=== PATIENT | female | born 1950 | race Caucasian/White ===

== ENCOUNTER 2018-01-31 13:47 | Observation (INO) | payer MEDICARE ==
[2018-01-31 14:05] VITALS: BP 106/60; PULSE 92; RESP 18; TEMP 97.4; O2SAT 96
--- NOTE | 2018-01-31 14:32 | PD ---
HPI Chief Complaint: Chest Pain Time Seen by Provider: 14:18 Travel History International Travel<30 days: No Contact w/Intl Traveler<30days: No Traveled to known affect area: No History of Present Illness HPI 67-year-old female with history of hypertension presents emergency department for evaluation of acute onset chest pain that began this morning while getting ready for lunch. She states it was more epigastric in nature, but had associated lightheaded sensation and diaphoresis with it. She states she has never had anything like this before. She has no significant cardiac history. Currently she is not having any pain. She has no other symptoms to report. [facility] Past Medical History Cardiovascular Problems: Yes Social History Tobacco Use: No Allergies-Medications (Allergen,Severity, Reaction): Coded Allergies: No Known Allergies (Unverified , 01/31/18) Review of Systems Except as stated in HPI: all other systems reviewed are Neg Physical Exam Narrative GENERAL: Well-nourished female patient, in no acute distress. SKIN: Focused skin assessment warm/dry. HEAD: Atraumatic. Normocephalic. EYES: Pupils equal and round. No scleral icterus. No injection or drainage. ENT: No nasal bleeding or discharge. Mucous membranes pink and moist. NECK: Trachea midline. No JVD. CARDIOVASCULAR: Regular rate and rhythm. No murmur appreciated. RESPIRATORY: No accessory muscle use. Clear to auscultation. Breath sounds equal bilaterally. GASTROINTESTINAL: Abdomen soft, non-tender, nondistended. Hepatic and splenic margins not palpable. No guarding. No rebound tenderness. MUSCULOSKELETAL: No obvious deformities. No clubbing. No cyanosis. No edema. NEUROLOGICAL: Awake and alert. No obvious cranial nerve deficits. Motor grossly within normal limits. Normal speech. PSYCHIATRIC: Appropriate mood and affect; insight and judgment normal. Data Data Last Documented VS Vital Signs Date Time Temp Pulse Resp B/P (MAP) Pulse Ox O2 Delivery O2 Flow Rate FiO2 01/31/18 17:33 78 18 125/62 (83) 99 Room Air 01/31/18 14:05 97.4 Orders Orders Electrocardiogram (01/31/18 14:07) Complete Blood Count With Diff (01/31/18 14:07) Ckmb (Isoenzyme) Profile (01/31/18 14:07) Troponin I (01/31/18 14:07) Chest, Single Ap (01/31/18 14:07) Iv Access Insert/Monitor (01/31/18 14:07) Ecg Monitoring (01/31/18 14:07) Oxygen Administration (01/31/18 14:07) Oximetry (01/31/18 14:07) Comprehensive Metabolic Panel (01/31/18 14:13) Lipase (01/31/18 14:13) Admit Order (Ed Use Only) (01/31/18 17:49) Activity Bed Rest With Brp (01/31/18 17:50) Vital Signs (Adult) Q4H (01/31/18 17:50) Cardiac Rhythm .As Directed (01/31/18 17:50) Notify Dr: Other .PRN (01/31/18 17:50) Notify Dr. Parameters (01/31/18 17:50) Resp Oxygen Nasal Cannula (01/31/18 ) Ckmb (Isoenzyme) Profile (01/31/18 17:50) Ckmb (Isoenzyme) Profile (01/31/18 20:50) Troponin I (01/31/18 17:50) Troponin I (01/31/18 20:50) Electrocardiogram (01/31/18 17:50) Electrocardiogram (01/31/18 20:50) ^ Obtain (01/31/18 17:50) Sodium Chloride 0.9% Flush (Ns Flush) (01/31/18 18:00) Sodium Chloride 0.9% Flush (Ns Flush) (01/31/18 21:00) Director Social Welfare / Telemetry JORDAN.Q8H (01/31/18 17:50) Ruben Bilateral/Knee High JORDAN.QSHIFT (01/31/18 17:50) Labs Laboratory Tests Test 01/31/18 14:13 White Blood Count 5.3 TH/MM3 Red Blood Count 3.83 MIL/MM3 Hemoglobin 12.2 GM/DL Hematocrit 37.2 % Mean Corpuscular Volume 97.1 FL Mean Corpuscular Hemoglobin 31.9 PG Mean Corpuscular Hemoglobin Concent 32.8 % Red Cell Distribution Width 14.0 % Platelet Count 217 TH/MM3 Mean Platelet Volume 8.3 FL Neutrophils (%) (Auto) 58.8 % Lymphocytes (%) (Auto) 18.8 % Monocytes (%) (Auto) 18.5 % Eosinophils (%) (Auto) 3.4 % Basophils (%) (Auto) 0.5 % Neutrophils # (Auto) 3.1 TH/MM3 Lymphocytes # (Auto) 1.0 TH/MM3 Monocytes # (Auto) 1.0 TH/MM3 Eosinophils # (Auto) 0.2 TH/MM3 Basophils # (Auto) 0.0 TH/MM3 CBC Comment DIFF FINAL Differential Comment Blood Urea Nitrogen 12 MG/DL Creatinine 0.86 MG/DL Random Glucose 96 MG/DL Total Protein 7.1 GM/DL Albumin 3.0 GM/DL Calcium Level 8.5 MG/DL Alkaline Phosphatase 143 U/L Aspartate Amino Transf (AST/SGOT) 38 U/L Alanine Aminotransferase (ALT/SGPT) 18 U/L Total Bilirubin 0.6 MG/DL Sodium Level 135 MEQ/L Potassium Level 4.5 MEQ/L Chloride Level 101 MEQ/L Carbon Dioxide Level 27.9 MEQ/L Anion Gap 6 MEQ/L Estimat Glomerular Filtration Rate 66 ML/MIN Total Creatine Kinase 64 U/L Troponin I LESS THAN 0.02 NG/ML Lipase 149 U/L MDM Medical Decision Making Medical Screen Exam Complete: Yes Emergency Medical Condition: Yes Medical Record Reviewed: Yes Differential Diagnosis ACS versus gastritis versus indigestion versus pancreatitis versus cholecystitis Narrative Course 67-year-old female presents emergency department for evaluation acute onset epigastric/chest pain. Patient appears well at this time. She is not having any pain. EKG is complete reviewed by my attending without acute ST elevation or depression. Chest pain workup is initiated. Lab work is reviewed and without acute concern. Chest x-ray shows elevated right hemidiaphragm. I discussed the patient with my attending physician. Patient will be admitted observation to the chest pain center for further evaluation of her symptoms. Laboratory Tests Test 01/31/18 14:13 White Blood Count 5.3 TH/MM3 Red Blood Count 3.83 MIL/MM3 Hemoglobin 12.2 GM/DL Hematocrit 37.2 % Mean Corpuscular Volume 97.1 FL Mean Corpuscular Hemoglobin 31.9 PG Mean Corpuscular Hemoglobin Concent 32.8 % Red Cell Distribution Width 14.0 % Platelet Count 217 TH/MM3 Mean Platelet Volume 8.3 FL Neutrophils (%) (Auto) 58.8 % Lymphocytes (%) (Auto) 18.8 % Monocytes (%) (Auto) 18.5 % Eosinophils (%) (Auto) 3.4 % Basophils (%) (Auto) 0.5 % Neutrophils # (Auto) 3.1 TH/MM3 Lymphocytes # (Auto) 1.0 TH/MM3 Monocytes # (Auto) 1.0 TH/MM3 Eosinophils # (Auto) 0.2 TH/MM3 Basophils # (Auto) 0.0 TH/MM3 CBC Comment DIFF FINAL Differential Comment Blood Urea Nitrogen 12 MG/DL Creatinine 0.86 MG/DL Random Glucose 96 MG/DL Total Protein 7.1 GM/DL Albumin 3.0 GM/DL Calcium Level 8.5 MG/DL Alkaline Phosphatase 143 U/L Aspartate Amino Transf (AST/SGOT) 38 U/L Alanine Aminotransferase (ALT/SGPT) 18 U/L Total Bilirubin 0.6 MG/DL Sodium Level 135 MEQ/L Potassium Level 4.5 MEQ/L Chloride Level 101 MEQ/L Carbon Dioxide Level 27.9 MEQ/L Anion Gap 6 MEQ/L Estimat Glomerular Filtration Rate 66 ML/MIN Total Creatine Kinase 64 U/L Troponin I LESS THAN 0.02 NG/ML Lipase 149 U/L Diagnosis Primary Impression: Chest pain Qualified Codes: R07.9 - Chest pain, unspecified Admitting Information Admitting Physician Requests: Observation Condition: Stable Lexie Nicole Jan 31, 2018 14:32
[2018-01-31 14:37] LABS: AUTOMATED NEUTROPHIL # 3.1 TH/MM3 (1.8-7.7); BASOPHIL % 0.5 % (0.0-2.0); EOSINOPHIL # 0.2 TH/MM3 (0-0.4); EOSINOPHIL % 3.4 % (0.0-4.0); HEMATOCRIT 37.2 % (35.0-46.0); HEMOGLOBIN 12.2 GM/DL (11.6-15.3); LYMPH % 18.8 % (9.0-44.0); MEAN CELL VOLUME 97.1 FL (80.0-100.0); MEAN CORPUSCULAR HEMOGLOBIN 31.9 PG (27.0-34.0); MEAN CORPUSCULAR HGB CONC 32.8 % (32.0-36.0); MEAN PLATELET VOLUME 8.3 FL (7.0-11.0); MONO % 18.5 % (0.0-8.0); NEUT % 58.8 % (16.0-70.0); PLATELET COUNT 217 TH/MM3 (150-450); RED BLOOD COUNT 3.83 MIL/MM3 (4.00-5.30); WHITE BLOOD COUNT 5.3 TH/MM3 (4.0-11.0)
--- NOTE | 2018-01-31 14:38 | RADRPT ---
EXAM DATE/TIME: 01/31/2018 14:20 [place] COMPARISON: No previous studies available for comparison. INDICATIONS : Chest pain today. MEDICAL HISTORY : None. SURGICAL HISTORY : None. ENCOUNTER: Initial ACUITY: 1 day PAIN SCORE: 4/10 LOCATION: Bilateral chest FINDINGS: A single view of the chest demonstrates the lungs to be aerated without evidence of mass, infiltrate or effusion. There is nonspecific elevation of the right hemidiaphragm. The cardiomediastinal contou rs are unremarkable. Osseous structures are intact. CONCLUSION: 1. Elevation of the right hemidiaphragm. 2. No definite acute pulmonary infiltrates. Jabier Camarena MD on January 31, 2018 at 14:35 Board Certified Radiologist. This report was verified electronically.
[2018-01-31 15:12] LABS: BICARBONATE 27.9 MEQ/L (21.0-32.0); BLOOD UREA NITROGEN 12 MG/DL (7-18); CALCIUM 8.5 MG/DL (8.5-10.1); CHLORIDE 101 MEQ/L (98-107); CREATININE 0.86 MG/DL (0.50-1.00); GLOMERULAR FILTRATION RATE 66 ML/MIN (>89); GLUCOSE,RANDOM 96 MG/DL (74-106); SODIUM (NA) 135 MEQ/L (136-145); TROPONIN I LESS THAN 0.02 NG/ML (0.02-0.05)
[2018-01-31 15:55] VITALS: BP 96/61; PULSE 85; RESP 18; O2SAT 98
[2018-01-31 16:58] LABS: ALT (GPT) 18 U/L (10-53); TOTAL BILIRUBIN ADULT 0.6 MG/DL (0.2-1.0); TOTAL PROTEIN 7.1 GM/DL (6.4-8.2)
[2018-01-31 17:00] LABS: ALKALINE PHOSPHATASE 143 U/L (45-117)
[2018-01-31 17:05] LABS: AST (GOT) 38 U/L (15-37)
[2018-01-31 17:33] VITALS: BP 125/62; PULSE 78; RESP 18; O2SAT 99
[2018-01-31] MEDS ORDERED: SODIUM CHLORIDE 0.9% FLUSH 10 ML FLUSH IV FLUSH PRN (18:00)
[2018-01-31] MEDS ORDERED: ACETAMINOPHEN 500 MG CPLT PO PRN (18:45)
[2018-01-31] MEDS ORDERED: ONDANSETRON HCL 4 MG/2 ML VIAL IV PUSH PRN (18:45)
[2018-01-31] MEDS ORDERED: NITROGLYCERIN 0.4 MG SL 25 TABS/BTL SL PRN (18:45)
--- NOTE | 2018-01-31 19:17 | HHI.HP ---
HPI Primary Care Physician Primary care provider resides in [place] Chief Complaint Chest pain History of Present Illness [id number] female with history of hypertension presents to emergency room for further evaluation of sudden onset of chest pain. Onset while getting ready to meet a friend for lunch. Location substernal. Characterized as a "crushing pain." No radiation. Duration 20 minutes. No associated symptoms of nausea, vomiting, or dyspnea. Endorses diaphoresis. Hurt to take a deep breath. Denies similar pain in the past. No known precipitating factors. Relieving factors nitroglycerin and aspirin provided by EMS. Currently she is chest pain- free reporting only feeling chest discomfort when taking a deep breath. Review of Systems General: No fatigue,weakness, fever, chills, or recent illness. Has been a general state of health. Lives part-time between [place] and [place]. HEENT: No GONZALEZ, no vision changes, no nasal congestion or drainage, no dysphasia CV: As stated above. No CP, pressure, palpitations, intermittent leg pain, or dizziness RESP: No SOB, cough, wheeze, or recent respiratory infection GI: No nausea, vomiting, bowel changes, diarrhea, constipation, pain, distention , melena, or blood in the stool. No change in appetite, no unintentional weight gain or weight loss. : No dysuria, urgency, frequency EXT: No lower leg edema, no paraesthesias MS: No discomfort, injury, trauma or change in ROM NEURO: No difficulty with balance, LOC, motor/sensory deficits PSYCH: No anxiety, depression, or situational stress. SKIN: No rashes, no concerning lesions Past Family Social History Allergies: Coded Allergies: No Known Allergies (Unverified , 01/31/18) Past Medical History Hypertension, glaucoma-recently diagnosed Past Surgical History None Active Ordered Medications Current Medications Medications (Trade) Dose Ordered Sig/Caren Route Start Time Stop Time Status Last Admin (NS Flush) 2 ml UNSCH PRN IV FLUSH 01/31/18 18:00 (NS Flush) 2 ml BID IV FLUSH 01/31/18 21:00 (Tylenol) 500 mg Q4H PRN PO 01/31/18 18:45 (Zofran Inj) 4 mg Q6H PRN IV PUSH 01/31/18 18:45 (Nitrostat Sl) 0.4 mg Q5M PRN SL 01/31/18 18:45 (Aspirin) 325 mg DAILY PO 02/01/18 09:00 Family History Noncontributory for early onset cardiovascular disease Social History Known hypertension. No known coronary artery disease, lipidemia, or diabetes. Lifelong nonsmoker. Endorses occasional alcohol use. . Retired. Lives part-time between [place] and [place]. Past Cardiac testing None Physical Exam Vital Signs Vital Signs Date Time Temp Pulse Resp B/P (MAP) Pulse Ox O2 Delivery O2 Flow Rate FiO2 01/31/18 18:37 01/31/18 17:33 78 18 125/62 (83) 99 Room Air 01/31/18 15:55 85 18 98 Room Air 01/31/18 15:55 85 18 96/61 (73) 98 Room Air 01/31/18 15:55 98 Room Air 01/31/18 15:55 98 Room Air 01/31/18 14:05 97.4 92 18 106/60 (75) 96 Physical Exam GENERAL: Alert WN, WD, NAD, pleasant, female HEAD: NC, AT EYES: Sclera clear, conjunctiva without injection, pupils equal and round ENT: Mucous membranes pink and moist CV: RRR, 2/6 systolic murmur, rub, gallop, no JVD, S1-S2 no S3-S4. RESP: Clear lungs throughout bilateral, no crackles, wheeze, rhonchi, symmetrical chest rise, nonlabored, able to speak in full sentences ABD: Soft, NT, ND, no masses, positive bowel tones EXT: Pulses +24, no dependent edema MS: Normal tone 4 extremities, no obvious deformities, full range of motion NEURO: CN II through CN XII grossly intact, motor strength 5/5 PSYCH: A+O 3, pleasant affect, appropriate speech, mood, insight and judgment SKIN: Normal turgor, normal texture Laboratory Laboratory Tests Test 01/31/18 14:13 White Blood Count 5.3 Red Blood Count 3.83 Hemoglobin 12.2 Hematocrit 37.2 Mean Corpuscular Volume 97.1 Mean Corpuscular Hemoglobin 31.9 Mean Corpuscular Hemoglobin Concent 32.8 Red Cell Distribution Width 14.0 Platelet Count 217 Mean Platelet Volume 8.3 Neutrophils (%) (Auto) 58.8 Lymphocytes (%) (Auto) 18.8 Monocytes (%) (Auto) 18.5 Eosinophils (%) (Auto) 3.4 Basophils (%) (Auto) 0.5 Neutrophils # (Auto) 3.1 Lymphocytes # (Auto) 1.0 Monocytes # (Auto) 1.0 Eosinophils # (Auto) 0.2 Basophils # (Auto) 0.0 CBC Comment DIFF FINAL Differential Comment Blood Urea Nitrogen 12 Creatinine 0.86 Random Glucose 96 Total Protein 7.1 Albumin 3.0 Calcium Level 8.5 Alkaline Phosphatase 143 Aspartate Amino Transf (AST/SGOT) 38 Alanine Aminotransferase (ALT/SGPT) 18 Total Bilirubin 0.6 Sodium Level 135 Potassium Level 4.5 Chloride Level 101 Carbon Dioxide Level 27.9 Anion Gap 6 Estimat Glomerular Filtration Rate 66 Total Creatine Kinase 64 Troponin I LESS THAN 0.02 Lipase 149 Result Diagram: 01/31/18 1413 01/31/18 1413 Imaging Last 48 hours Impressions Chest X-Ray 01/31/18 1407 Signed Impressions: Service Date/Time: January 14:20 - CONCLUSION: 1. Elevation of the right hemidiaphragm. 2. No definite acute pulmonary infiltrates. Jabier Camarena MD Course EKG Normal sinus rhythm, no ST changes Caprini VTE Risk Assessment Caprini VTE Risk Assessment: Mod/High Risk (score >= 2) Caprini Risk Assessment Model Point Value = 1 Point Value = 2 Point Value = 3 Point Value = 5 Age 41-60 Minor surgery BMI > 25 kg/m2 Swollen legs Varicose veins or History of unexplained or recurrent spontaneous Oral contraceptives or hormone replacement Sepsis (< 1 month) Serious lung disease, including pneumonia (< 1 month) Abnormal pulmonary function Acute myocardial infarction Congestive heart failure (< 1 month) History of inflammatory bowel disease Medical patient at bed rest Age 61-74 Arthroscopic surgery Major open surgery (> 45 min) Laparoscopic surgery (> 45 min) Malignancy Confined to bed (> 72 hours) Immobilizing plaster cast Central venous access Age >= 75 History of VTE Family history of VTE Factor V Leiden Prothrombin [id number] Lupus anticoagulant Anticardiolipin antibodies Elevated serum homocysteine Heparin-induced thrombocytopenia Other congenital or acquired thrombophilia Stroke (< 1 month) Elective arthroplasty Hip, pelvis, or leg fracture Acute spinal cord injury (< 1 month) Prophylaxis Regimen Total Risk Factor Score Risk Level Prophylaxis Regimen 0-1 Low Early ambulation 2 Moderate Order ONE of the following: *Sequential Compression Device (SCD) *Heparin 5000 units SQ BID 3-4 Higher Order ONE of the following medications: *Heparin 5000 units SQ TID *Enoxaparin/Lovenox 40 mg SQ daily (WT < 150 kg, CrCl > 30 mL/min) *Enoxaparin/Lovenox 30 mg SQ daily (WT < 150 kg, CrCl > 10-29 mL/min) *Enoxaparin/Lovenox 30 mg SQ BID (WT < 150 kg, CrCl > 30 mL/min) AND/OR *Sequential Compression Device (SCD) 5 or more Highest Order ONE of the following medications: *Heparin 5000 units SQ TID (Preferred with Epidurals) *Enoxaparin/Lovenox 40 mg SQ daily (WT < 150 kg, CrCl > 30 mL/min) *Enoxaparin/Lovenox 30 mg SQ daily (WT < 150 kg, CrCl > 10-29 mL/min) *Enoxaparin/Lovenox 30 mg SQ BID (WT < 150 kg, CrCl > 30 mL/min) AND *Sequential Compression Device (SCD) Assessment and Plan Assessment and Plan #1 Chest pain-the chest pain center. Rule out with 3 sets of EKGs, cardiac enzymes, monitor on telemetry overnight. Will be seen and evaluated by Dr. Jj Reynoso in a.m. Discussed possible exercise stress test in a.m. if ruled out. This will be determined after evaluation by machine bobbin winder. Patient is agreeable to plan of care. #2 Elevated right diaphragm-no comparison chest xray available, discussed findings with patient, unsure if this is a new finding. Further evaluation with Dr. Reynoso in morning. Patient is resting comfortably without any complaints. Leah Escalera Jan 31, 2018 19:17
[2018-01-31 20:13] VITALS: BP 110/61; PULSE 86; RESP 16; TEMP 98; O2SAT 95
[2018-01-31 20:24] LABS: TROPONIN I LESS THAN 0.02 NG/ML (0.02-0.05)
[2018-01-31] MEDS: SODIUM CHLORIDE 0.9% FLUSH 10 ML FLUSH IV FLUSH SCH (21:49)
[2018-01-31] MEDS ORDERED: ZOLPIDEM TARTRATE 10 MG TAB PO PRN (22:45)
[2018-01-31] MEDS ORDERED: LOSA100T PO (23:03)
[2018-01-31] MEDS ORDERED: DULO1CAP3 PO (23:06)
[2018-01-31] MEDS ORDERED: BUPR150CR PO (23:06)
[2018-01-31 23:33] LABS: TROPONIN I LESS THAN 0.02 NG/ML (0.02-0.05)
[2018-01-31 23:58] VITALS: BP 116/69; PULSE 82; RESP 16; TEMP 97.9; O2SAT 95
[2018-02-01 08:01] VITALS: O2SAT 94
[2018-02-01 08:13] VITALS: BP 117/78; PULSE 82; PULSE 86; RESP 18; TEMP 98.5; O2SAT 95
[2018-02-01] MEDS: SODIUM CHLORIDE 0.9% FLUSH 10 ML FLUSH IV FLUSH SCH (08:21)
[2018-02-01] MEDS ORDERED: ASPIRIN 325 MG TAB PO SCH (09:00)
[2018-02-01] MEDS ORDERED: DULoxetine HCl DR 60 MG CAP PO SCH (10:00)
--- NOTE | 2018-02-01 10:16 | HHI.DCPOC ---
Discharge Care Plan Diagnosis: (1) Chest pain (2) Hypertension Goals to Promote Your Health * To prevent worsening of your condition and complications * To maintain your health at the optimal level Directions to Meet Your Goals Take your medications as prescribed Follow your dietary instruction Follow activity as directed Keep your appointments as scheduled Take your immunizations and boosters as scheduled If your symptoms worsen call your PCP, if no PCP go to Urgent Care Center or Emergency Room Smoking is Dangerous to Your Health. Avoid second hand smoke Call the 24-hour hour crisis hotline for domestic abuse at [facility] Contreras Feb 01, 2018 10:16
[2018-02-01] MEDS ORDERED: LOSARTAN 50 MG TAB PO SCH (11:00)
--- NOTE | 2018-02-01 11:41 | TR ---
Date Performed: 02/01/2018 Time Performed: 09:06:53 DOCTOR: Jj Reynoso DRUG LIST: CLINICAL HISTORY: CHEST PAIN REASON FOR TEST: REASON FOR ENDING: OBSERVATION: CONCLUSION: ZEENAT PROTOCOL. NO CP. MILD SOB. TEST STOPPED AFTER EXCEEDING GOAL HR SECONDARY TO C HRONIC BILATERAL HIP PAIN.Maximum TD=106 % Max HR Achieved=89.0% Maximum MA=688/74 Total Exercise Turner e=5:30 COMMENTS: Conclusion: Normal treadmill exercise. No evidence of ischemia.
--- NOTE | 2018-02-01 11:42 | EKG ---
Date Performed: 01/31/2018 Time Performed: 19:18:45 PTAGE: 67 years EKG: Sinus rhythm NORMAL ECG PREVIOUS TRACING : 01/31/2018 14.21 Since previous tracing, no significant change noted DOCTOR: Jj Reynoso Interpretating Date/Time 02/01/2018 11:40:10
--- NOTE | 2018-02-01 11:44 | EKG ---
Date Performed: 01/31/2018 Time Performed: 14:19:11 PTAGE: 67 years EKG: Sinus rhythm INCOMPLETE RIGHT BUNDLE BRANCH BLOCK BORDERLINE ECG NO PREVIOUS TRACING DOCTOR: Jj Reynoso Interpretating Date/Time 02/01/2018 11:41:43
--- NOTE | 2018-02-01 11:46 | EKG ---
Date Performed: 01/31/2018 Time Performed: 22:47:16 PTAGE: 67 years EKG: Sinus rhythm INCOMPLETE RIGHT BUNDLE BRANCH BLOCK BORDERLINE ECG PREVIOUS TRACING : 01/31/2018 19.18 Since previous tracing, no significant change noted DOCTOR: Jj Reynoso Interpretating Date/Time 02/01/2018 11:44:24
[2018-02-01] MEDS ORDERED: buPROPion HCL 150 MG SUSTAINED RELEASE TAB PO SCH (21:00)
== END 2018-02-01 11:44 | disposition home or self-care (01) ==
LOC: NEPE 13:47 → NEDA 17:50 → NEPGCP 19:11
DX: R07.89 Other chest pain (principal); R42 Dizziness and giddiness; R61 Generalized hyperhidrosis; I45.10 Unspecified right bundle-branch block; I10 Essential (primary) hypertension; H40.9 Unspecified glaucoma
CPT/HCPCS: 71045; 80053; 82550; 83690; 84484; 85025; 93005; 93017; 99285; G0378

== ENCOUNTER 2019-01-04 22:18 | Inpatient (IN) ==
[2019-01-04] MEDS ORDERED: Naloxone Inj 0.4 MG/ML Vial IV.PUSH PRN (23:01)
[2019-01-04] MEDS ORDERED: Post-op Orders (for Pharmacy) OTHER ONE (23:01)
[2019-01-04] MEDS ORDERED: Bisacodyl 10 MG Supp RECTAL PRN (23:01)
[2019-01-04] MEDS ORDERED: Acetaminophen 325 MG Tablet PO PRN (23:01)
[2019-01-04] MEDS ORDERED: Sod Chloride 0.9% Inj 1,000 ML IV.CONT SCH (23:15)
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
[2019-01-05 05:09] LABS: Baso # (Auto) 0.1 th/mm3 (0.0-0.2); Baso % (Auto) 0.7 % (0.0-2.0); Eos % (Auto) 0.4 % (0.0-4.0); Hemoglobin 13.6 gm/dL (11.6-15.3); Lymph # (Auto) 1.5 th/mm3 (1.0-4.8); Lymph % (Auto) 15.1 % (9.0-44.0); Mean Corpuscular HGB Conc 33.9 % (32.0-36.0); Mean Corpuscular Hemoglobin 33.4 pg (27.0-34.0); Mean Corpuscular Volume 98.5 fL (80.0-100.0); Mean Platelet Volume 8.9 fL (7.0-11.0); Mono # (Auto) 0.7 th/mm3 (0.0-0.9); Mono % (Auto) 7.6 % (0.0-8.0); Neut # (Auto) 7.4 th/mm3 (1.8-7.7); Neut % (Auto) 76.2 % (16.0-70.0); Platelet Count 207 th/mm3 (150-450); Red Blood Count 4.06 mil/mm3 (4.00-5.30); Red Cell Distribution Width 14.3 % (11.6-17.2); White Blood Count 9.7 th/mm3 (4.0-11.0)
[2019-01-05 05:33] LABS: Calcium 8.5 mg/dL (8.5-10.1); Carbon Dioxide 27.6 meq/L (21.0-32.0); Potassium 4.2 meq/L (3.5-5.1)
--- NOTE | 2019-01-05 08:11 | CT ---
EXAM DATE: 01/05/2019 7:59 AM EST AGE/SEX: 68 years / Female INDICATIONS: Subarachnoid Hemorrhage CLINICAL DATA: This is the patient's initial encounter. Patient reports that signs and symptoms have been present for 1 day and indicates a pain score of 2/10. MEDICAL/SURGICAL HISTORY: Hypertension. None. RADIATION DOSE: 56.35 CTDI (mGy) COMPARISON: No prior exams available for comparison. TECHNIQUE: CT of the head without contrast. Using automated exposure control and adjustment of the mA and/or kV according to patient size, radiation dose was kept as low as reasonably achievable to ob tain optimal diagnostic quality images. DICOM format image data is available electronically for revi ew and comparison. FINDINGS: Cerebrum: The ventricles are normal for age. No evidence of midline shift, mass lesion, hemorrhage or acute infarction. No extraaxial fluid collections are seen. Posterior Fossa: The cerebellum and brainstem are intact. The 4th ventricle is midline. The cerebe llopontine angle is unremarkable. Extracranial: There is near-total opacification of the right maxillary sinus. Air appears to be with in the inferior right orbit with proptosis of the right orbital structures. Recommend further evaluat ion of this area. Skull: The calvaria is intact. No evidence of skull fracture. CONCLUSION: 1. No evidence of subarachnoid hemorrhage or intracranial abnormality. However, there is near total opacification of the right maxillary sinus with what appears to be air extending into the inferior ri ght orbit resulting in proptosis of the orbital structures. Recommend further evaluation of this area with contrast-enhanced CT to exclude an abscess. . . Electronically signed by: Ramya Sharma MD Board Certified Radiologist 01/05/2019 8:10 AM EST
[2019-01-05 08:39] VITALS: TEMP 98.2
[2019-01-05] MEDS ORDERED: Multivitamin Inj 10 ML, Thiamine Inj 100 MG, Folic Acid Inj 1 MG in Sodium Chlor 0.9% I... IV.SIG SCH (09:00)
[2019-01-05] MEDS ORDERED: Famotidine 20 MG Tablet PO SCH (09:00)
[2019-01-05] MEDS ORDERED: Senna/Docusate Sodium 8.6/50 MG Tablet PO SCH (09:00)
[2019-01-05] MEDS ORDERED: levETIRAcetam 500 MG Tablet PO SCH (09:00)
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
[2019-01-05 11:29] VITALS: BP 150/71; PULSE 92; RESP 18; O2SAT 97
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
== END 2019-01-05 11:19 | disposition home or self-care (01) | DRG 84 ==
LOC: NEPE 22:18 → NEDA 23:15 → N03 01-05 00:39
PROVIDERS: ADMIT Surgery; ATTEND Surgery
CPT/HCPCS: 70450; 80048; 85025; 87641; 97161; 99283; J3411; J7030; J7040